=== PATIENT | female | born 1940 | race African-American/Black ===

== ENCOUNTER 2018-11-30 12:04 | Day surgery (SDC) | payer MEDICARE, BC ==
[2018-11-30] MEDS ORDERED: Fleet Enema 133 ML BOT FS SCH (14:00)
[2018-11-30] MEDS ORDERED: PROPOFOL 200 MG/20 ML VIAL ONE (15:05)
[2018-11-30] MEDS ORDERED: PHENYLEPHRINE-NS 100 MCG/ML 10 ML SYRINGE ONE (15:05)
[2018-11-30 17:08] LABS: #Lymphocytes 1.4 thou/uL (1.20-3.40); #Monocytes 0.3 thou/uL (0.11-0.59); %Basophils 0.3 % (0.0-1.0); %Eosinophils 0.7 % (0.0-10.0); %Lymphocytes 30.1 % (21.0-51.0); %Monocytes 5.7 % (0.0-10.0); %Neutrophils 63.1 % (42.0-75.0); Mean Corpuscular HGB CONC 29.8 g/dL (32.0-36.0); Mean Corpuscular Hemoglobin 23.1 pg (27.0-31.0); Mean Corpuscular Volume 77.6 fL (78.0-98.0); Mean Platelet Volume 9.9 fL (7.4-10.4); Platelet Count 210 thou/uL (130-400); RBC Distribution Width 15.1 % (11.5-14.5); Red Blood Cell (RBC) Count 5.19 mill/uL (4.20-5.40); White Blood Cell (WBC) Count 4.8 thou/uL (4.8-10.8)
[2018-11-30 17:10] LABS: INR-International Normal Ratio 1.3; PTT 33.8 SEC (22.9-36.1); Prothrombin Time 16.6 SEC (12.0-14.7)
[2018-11-30 17:25] LABS: Anisocytosis SLIGHT = 6-15 cells (100X) (0-5/hpf); Hypochromia SLIGHT = 6-15 cells (100X) (0-5/hpf); MDiff Complete? YES; Microcytosis SLIGHT = 6-15 cells (100X) (0-5/hpf); Ovalocytes SLIGHT = 2-5 cells (100X) (0-1/hpf); Platelet Morphology Comment Appears Adequate; Polychromasia SLIGHT = 2-3 cells (100X) (0-2/hpf); Target Cells SLIGHT = 2-5 cells (100X) (0-1/hpf)
--- NOTE | 2018-11-30 22:22 | OP ---
DATE OF PROCEDURE: 11/30/2018 TITLE OF PROCEDURE: Colonoscopy. PREPROCEDURE DIAGNOSIS: Iron deficiency anemia. POSTPROCEDURE DIAGNOSES: 1. Exam to cecum; adequate bowel preparation. 2. Mild diffuse redundancy of colon. 3. Small internal hemorrhoids. 4. Otherwise normal colonoscopy; no polyps or active bleeding sites seen. PROCEDURE IN DETAIL: Written informed consent was obtained. Upon completion of the EGD, the patient was repositioned for the colonoscopy. Total intravenous anesthesia was provided by Dr. Aguilar Forbes and associates. The patient was placed in the left lateral decubitus position. A digital rectal exam was performed that was unremarkable. The Pentax video colonoscope was inserted through the anal canal and advanced under direct visualization to the cecum. Position in the cecum was verified by identification of the appendiceal orifice, the cecal strap, and the ileocecal valve. The quality of the bowel preparation was adequate. Copious lavage with water and suctioning was used to improve overall visualization. Each colon segment was examined carefully as the colonoscope was slowly withdrawn from the cecum. Vascular pattern and haustral folds appeared normal. No polyp, diverticulum, or vascular ectasia was identified. The colon was mildly redundant throughout. In the rectum, a retroflexed view demonstrated small internal hemorrhoids that were not actively bleeding. The colon was decompressed as the colonoscope was removed from the patient. She was transferred to the Day Stay surgery area for postprocedure monitoring. There were no immediate complications. RECOMMENDATIONS: 1. Resume previous diet. 2. Resume previous medications with the exception of Xarelto. 3. No further screening colonoscopy is recommended due to patient's age and absence of polyps on this exam. 4. Follow up in GI clinic in about 1 month. Job ID: [id number]
--- NOTE | 2018-11-30 23:07 | OP ---
DATE OF PROCEDURE: 11/30/2018 PROCEDURE PERFORMED: Esophagogastroduodenoscopy with argon plasma coagulation for control of bleeding. PREPROCEDURE DIAGNOSES: 1. Iron-deficiency anemia. 2. Chronic Xarelto and aspirin use for atrial fibrillation. POSTPROCEDURE DIAGNOSES: 1. Exam to second portion of duodenum. 2. 1 cm sliding hiatal hernia. 3. Grade A esophagitis at 38 cm, biopsied. 4. Scattered small maroon clots located in the distal gastric body and antrum, removed with irrigation and suctioning. 5. 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 6. No gastric ulcer identified. 7. Grossly normal-appearing duodenum from the bulb to the second portion. DESCRIPTION OF PROCEDURE: Written informed consent was obtained. The patient was brought to the endoscopy suite. Total intravenous anesthesia was provided by Dr. Aguilar Forbes and associates. The patient was placed in the left lateral decubitus position. A bite block was inserted into the mouth. A Pentax video diagnostic gastroscope was introduced into the oral cavity and the esophagus was carefully intubated. The gastroscope was advanced under direct visualization to the second portion of the duodenum. Endoscopic findings revealed a 1 to 2 cm sliding hiatal hernia with grade A esophagitis identified at 38 cm from the incisors. Biopsies were obtained for histology. There was no evidence of esophageal varices, ulcer , or active bleeding. The stomach was entered and carefully examined. This included a retroflexed view of the cardia and fundus. Several maroon clots were identified in the distal body and antrum. Copious irrigation was used to remove the clots and expose the underlying mucosa. Three small oozing vascular ectasias were identified in this area of the stomach. Using argon plasma coagulation (0.4 L/minute, 25 encinas), the vascular ectasias were coagulated with good result. No gastric ulcer or neoplasm was identified. The duodenum from the bulb to the second portion also demonstrated bright red fluid, which was rinsed away with tap water lavage and revealed no duodenal vascular ectasias or ulcer. The stomach was decompressed as the endoscope was removed from the patient. She was repositioned for the colonoscopy. There were no immediate complications. RECOMMENDATIONS: 1. Await biopsy results. 2. Initiate Prilosec 20 mg daily for 6 to 8 weeks. 3. Follow up in GI office in 1 month. 4. Resume previous diet. 5. Resume previous medications with the exception of Xarelto and aspirin. 6. We will contact Dr. Bhatia to discuss the above findings and his recommendations regarding resumption of anticoagulation therapy. Job ID: [id number] [id number]
== END 2018-11-30 17:12 | disposition home or self-care (01) ==
LOC: SDC 12:04
PROVIDERS: ATTEND Internal Medicine Gastroenterology
PROC: 0DB58ZX Excision of Esophagus, Via Natural or Artificial Opening Endoscopic, Diagnostic (ICD-10-PCS; principal; 2018-11-30)
PROC: 0D568ZZ Destruction of Stomach, Via Natural or Artificial Opening Endoscopic (ICD-10-PCS; 2018-11-30)
PROC: 0DJD8ZZ Inspection of Lower Intestinal Tract, Via Natural or Artificial Opening Endoscopic (ICD-10-PCS; 2018-11-30)
DX: D50.9 Iron deficiency anemia, unspecified (principal); K31.811 Angiodysplasia of stomach and duodenum with bleeding; K20.9 Esophagitis, unspecified; K44.9 Diaphragmatic hernia without obstruction or gangrene; K64.8 Other hemorrhoids; I10 Essential (primary) hypertension; E78.00 Pure hypercholesterolemia, unspecified; I48.2 Chronic atrial fibrillation; K59.09 Other constipation; Z88.5 Allergy status to narcotic agent; Z79.01 Long term (current) use of anticoagulants; Z79.82 Long term (current) use of aspirin; Z86.73 Personal history of transient ischemic attack (TIA), and cerebral infarction without residual deficits; Z79.899 Other long term (current) drug therapy; Z80.0 Family history of malignant neoplasm of digestive organs
CPT/HCPCS: 36415; 85025; 85610; 85730; 88305; 88312; 88313